=== PATIENT | female | born 1975 | race Caucasian/White ===

== ENCOUNTER 2016-10-10 10:56 | Day surgery (SDC) | payer OTHER ==
--- NOTE | 2016-10-06 03:37 | HP ---
PREOPERATIVE HISTORY AND PHYSICAL: DATE OF SURGERY/ADMISSION: 10/10/16 [facility] DATE OF OFFICE VISIT/ENCOUNTER: 10/02/16 ATTENDING SURGEON: Lamar Huff MD (DICTATED BY JAKE SAEZ) PROCEDURE: Left small finger mallet finger repair. CHIEF COMPLAINT: Mallet finger left small finger. HISTORY OF PRESENT ILLNESS: This is a 41-year-old female who sustained injury to her left pinky finger on 08/30/16 when she got bucked off of a horse. She had pain at the DIP joint and a flexion deformity at the joint. Initial x-ray showed a small fracture at the base of the distal phalanx, bony mallet finger. Despite appropriate treatment and diligence of the patient with wearing a stack splint on the finger, x-rays on 10/02/16 showed no subluxation of the joint, but also no healing callus after review of x-rays and the patient evaluation by Dr. Huff, it is recommended that the patient undergo a left small finger mallet finger repair. The patient has consented to proceed. PAST MEDICAL HISTORY: Allergic rhinitis. PAST SURGICAL HISTORY: D and C. CURRENT MEDICATIONS: 1. Fluticasone 50 mcg/ACT 1 puff daily. 2. Multivitamin daily. 3. Previfem 0.25-35 mg-mcg 1 daily. 4. Probiotic acidophilus daily. 5. Triamcinolone acetonide 0.025% apply to affected area p.r.n. ALLERGIES: PENICILLIN causes hives. FAMILY MEDICAL HISTORY: Noncontributory. 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 She denies tobacco use and recreational drug use. She does admit to alcohol use on occasion. REVIEW OF SYSTEMS: General: Negative for fevers, chills or night sweats. No known anesthesia problems. HEENT: Negative for headache, lightheadedness or syncopal episodes. Integumentary: Negative for abrasions, lesions or open wounds. Cardiothoracic: Negative for hypertension, chest pain, palpitations or edema. Pulmonary: Negative for shortness of breath with exertion, chronic cough , COPD. GI: Negative for nausea, vomiting, diarrhea or constipation or GERD. : Negative for nocturia, urinary frequency, urgency, history of UTIs or kidney problems. Musculoskeletal: Positive for current complaints, otherwise negative. Neurological: Negative for paresthesias, numbness, history of seizure , stroke or epilepsy. Endocrine: Negative for diabetes or thyroid issues. Hematologic: Negative for easy bruising, anemia, excessive bleeding or history of DVTs. Infectious Disease: Negative for history of MRSA, hepatitis C or HIV. PHYSICAL EXAMINATION GENERAL: A well-developed, well-nourished 41-year-old female, in no acute distress. VITAL SIGNS: Height 5 feet 7 inches, weight 140 pounds, pulse rate 68, blood pressure 134/65. HEENT: Normocephalic, atraumatic. Pupils are equal, round and reactive to light and accommodation. Extraocular movements are intact. Throat is clear. NECK: Supple. No palpable lymph nodes. PULMONARY: Lungs are clear to auscultation bilaterally. No wheezes, rales or rhonchi. CARDIOVASCULAR: Regular rate and rhythm. S1, S2. No murmurs, rubs or gallops. No edema. ABDOMEN: Positive bowel sounds. Soft, nontender. NEUROLOGIC: Alert and oriented x3. Cranial nerves II through XII are intact. Sensation is intact to light touch. PERIPHERAL VASCULAR: 2+ radial and ulnar pulses. Negative Giuseppe test. MUSCULOSKELETAL: On exam of the left small finger, there is a slight flexion deformity at the DIP joint. The patient is unable to actively extend the DIP joint. Passively full extension may be obtained, but the patient is not able to hold the finger in that position. Neurovascular function is intact. SKIN: Intact. IMAGING STUDIES: X-rays show no subluxation of the main fragment of the distal phalanx, but no healing. IMPRESSION: Left pinky finger bony mallet finger. PLAN: The patient is scheduled to undergo a left small finger mallet finger repair with Dr. Huff on 10/10/16. She will return to the office in 10 to 14 days postop for followup and suture removal. A prescription for [place] was e- scribed to the patient's pharmacy for postoperative pain management. JAKE SAEZ [id number]/[facility] #: [id number] MTDJose
[~2016-10-10 10:56] MED LIST: Buffered Lidocaine 0.9% SYRIN* 5 ML/SYR SYRINGE INTRADERM ONE; celeCOXIB CAP* 200 MG PO ONE
[2016-10-10] MEDS ORDERED: celeCOXIB CAP* 100 MG ONE (11:14)
[2016-10-10] MEDS ORDERED: Clindamycin 900 MG IVPREMIX(* 900 MG/50 ML SDV IV ONE (11:14)
[2016-10-10] MEDS ORDERED: Buffered Lidocaine 0.9% SYRIN* 5 ML/SYR SYRINGE ONE (11:15)
[2016-10-10] MEDS ORDERED: Lidocaine 1% INJ* 10 MG/ML 30 ML SDV ONE (12:35)
[2016-10-10] MEDS ORDERED: fentaNYL* 50 MCG/ML 2 ML VIAL (100 MCG VIAL) ONE (12:48)
[2016-10-10] MEDS ORDERED: Midazolam* 1 MG/ML 2 ML VIAL (2 MG) ONE (12:49)
[2016-10-10] MEDS ORDERED: HYDROcodone/ACETAMIN 5-325 MG* 1 TAB ONE (13:27)
[2016-10-10 13:55] VITALS: BP 103/73
--- NOTE | 2016-10-10 14:59 | RAD ---
INDICATION: Status post left small finger mallet repair, M 20.012 COMPARISONS: October 02, 2016 TECHNIQUE: Fluoroscopy was provided for a surgical procedure. Total fluoroscopy time is: 1 minute, 48 seconds FINDINGS: Spot images demonstrate external fixation of the fifth digit IMPRESSION: FLUOROSCOPY WAS PROVIDED FOR A SURGICAL PROCEDURE CPT II Codes: 6045F
--- NOTE | 2016-10-10 23:45 | OP ---
CC: Dr. Lamar Huff OPERATIVE NOTE: DATE OF OPERATION: 10/10/16 DATE OF : 71 SURGEON: Lamar Huff MD [employer] POLICE: JAKE Harris ANESTHESIA: [employer]. PRE-OP DIAGNOSIS: Displaced bony mallet finger of the left small finger. POST-OP DIAGNOSIS: Displaced bony mallet finger of the left small finger. OPERATIVE PROCEDURE: Mallet finger repair, left small finger. ESTIMATED BLOOD LOSS: Zero. TOURNIQUET TIME: Tourniquet was not used during the procedure. DESCRIPTION OF PROCEDURE: The patient was brought to the operating room, was given a sedation anest hetic and a digital block with 10 cc of 1% plain lidocaine. The skin of her left hand and forearm w as prepped and draped in the usual sterile fashion. The tourniquet was not used during the procedur e. The finger was then manipulated and with flexion, we were able to reduce the dorsal fragment and an extension blocking K-wire was placed just proximal to the dorsal fragment and into the middle ph alanx from dorsal to volar and then with extension of the DIP joint, the remainder of the distal pha lanx reduced and we drove a single 0.035 inch K-wire through the distal aspect of the bone through t he tip of the finger and then across the DIP joint into the central aspect of the middle phalanx. T he position of the fracture fragments was checked on the C-arm in the AP and lateral views an d the joint was well reduced. The pins were bent and cut, dressed with Xeroform, 4x4 Webril, and an AlumaFoam splint. The patient tolerated the procedure and was brought to the recovery in good cond ition. [id number]/[facility] #: [id number]
== END 2016-10-10 13:50 | disposition home or self-care (01) ==
LOC: OREAST 10:56
PROVIDERS: ATTEND Orthopaedic Surgery
PROC: 0XQ Anatomical Regions, Upper Extremities, Repair (ICD-10-PCS; principal; 2016-10-10 12:15)
DX: M20.012 Mallet finger of left finger(s) (principal)
CPT/HCPCS: 76000; A9270-GY; C1776; J2001; J2250; J3010

== ENCOUNTER 2016-11-08 14:59 | Emergency (ER) | payer OTHER ==
[2016-11-08 15:04] VITALS: BP 97/66
--- NOTE | 2016-11-08 15:14 | UC ---
Hip/Pelvis Pain - HPI Summary HPI Summary: 41 YEAR OLD FEMALE PRESENTS WITH COMPLAINS OF LEFT HIP PAIN AFTER BEING TRAMPLEd BY A HORSE. I WILL SEND HER TO THE ER FOR A LEFT HIP FX. SPOKE TO LEXUS. - History Of Current Complaint Chief Complaint: UCLowerExtremity Stated Complaint: HIP INJURY Time Seen by Provider: 11/08/16 15:06 Hx Last Menstrual Period: 1 WEEK AGO - Allergies/Home Medications Allergies/Adverse Reactions: Allergies Allergy/AdvReac Type Severity Reaction Status Date / Time Penicillins Allergy Intermediate Hives Verified 11/08/16 15:04 PMH/Surg Hx/FS Hx/Imm Hx - Surgical History Surgical History: Yes Surgery Procedure, Year, and Place: D&C 2001, LEFT 5TH FINGER PINNED 10/2016 - Family History Known Family History: Positive: Hypertension - Social History Alcohol Use: Occasionally Alcohol Amount: 2-3 drinks wine or beer Substance Use Type: None Smoking Status (MU): Never Smoked Tobacco Review of Systems Constitutional: Negative Skin: Negative Eyes: Negative ENT: Negative Respiratory: Negative Cardiovascular: Negative Gastrointestinal: Negative Genitourinary: Negative Motor: Negative Neurovascular: Negative Musculoskeletal: Negative, Arthralgia, Other: - LEFT HIP PAIN Neurological: Negative Psychological: Negative All Other Systems Reviewed And Are Negative: Yes Physical Exam Triage Information Reviewed: Yes Vital Signs: Initial Vital Signs Temp 37.6 C 11/08/16 15:01 Pulse 87 11/08/16 15:01 Resp 16 11/08/16 15:01 BP 97/66 11/08/16 15:01 Pulse Ox 100 11/08/16 15:01 Hip Injury Course/Dx - Differential Dx/Diagnosis Provider Diagnoses: LEFT HIP FX Discharge - Discharge Plan Condition: Stable Disposition: AGAINST MEDICAL ADVICE Patient Education Materials: Hip Pain (ED) Referrals: No Primary Care Phys,NOPCP [Primary Care Provider] -
--- NOTE | 2016-11-08 16:07 | RAD ---
HISTORY: Trauma, left groin pain COMPARISONS: None VIEWS: 3, Frontal view of the pelvis with frontal and frog-leg views of the left hip FINDINGS: BONE DENSITY: Normal. BONES: There are nondisplaced fractures of left superior and inferior pubic rami JOINTS: There is no arthropathy. ALIGNMENT: There is no dislocation. SOFT TISSUES: Unremarkable. OTHER FINDINGS: None. IMPRESSION: NONDISPLACED FRACTURES OF LEFT SUPERIOR AND INFERIOR PUBIC RAMI
== END 2016-11-08 16:20 | disposition left against medical advice (07) ==
LOC: UCEAST 14:59
DX: S72.002A Fracture of unspecified part of neck of left femur, initial encounter for closed fracture (principal); W55.19XA Other contact with horse, initial encounter; Y92.9 Unspecified place or not applicable
CPT/HCPCS: 99212; G0463

== ENCOUNTER 2016-11-08 17:08 | Inpatient (IN) | payer OTHER ==
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
[2016-11-08] MEDS ORDERED: HYDROcodone/ACETAMIN 5-325 MG* 1 TAB PO ONE (18:19)
--- NOTE | 2016-11-08 19:16 | RAD ---
HISTORY: Trauma, pelvic fracture, abdominal pain COMPARISONS: Left hip film dated November 08, 2016 TECHNIQUE: Multiple contiguous axial CT scans were obtained of the chest, abdomen, and pelvis, without intravenous contrast enhancement. Coronal and sagittal multiplanar reformations are submitted for review.. Oral contrast was not administered. FINDINGS: The study is limited by the lack of intravenous contrast. This limits evaluation of the solid organs and vasculature. This also precludes evaluation of active arterial extravasation CHEST NECK AND THYROID: The lower neck and thyroid are unremarkable. CHEST WALL: There is no lower cervical, axillary, or supraclavicular lymphadenopathy by size criteria. HEART AND PERICARDIUM: The heart is unremarkable. AORTA AND PULMONARY VASCULATURE: The aorta and pulmonary vasculature are normal. MEDIASTINUM: There is no mediastinal lymphadenopathy by size criteria. ANGELO: There is no hilar lymphadenopathy by size criteria. AIRWAY AND ESOPHAGUS: The airway is unremarkable, without endobronchial filling defect. The esophagus is grossly normal. LUNG PARENCHYMA: The lungs are clear. PLEURA: No pleural abnormalities are noted. BONES AND SOFT TISSUES: No bone or soft tissue abnormalities are noted. ABDOMEN/PELVIS: LIVER: The liver is normal in shape, size, contour, and attenuation. BILE DUCTS: There is no intrahepatic or extrahepatic biliary dilatation. GALLBLADDER: The gallbladder is normal, without pericholecystic inflammatory change. PANCREAS: The pancreas is normal, without mass or ductal dilatation. SPLEEN: Normal in size and appearance. UPPER GI TRACT: Evaluation of the gastrointestinal tract is limited by incomplete gastric distention. The upper GI tract is unremarkable. SMALL BOWEL \T\ MESENTERY: The small bowel is normal in contour, course, and caliber. There is no obstruction or dilatation. COLON: The colon is normal in contour, course, caliber. There is no pericolonic inflammatory change. ADRENALS: Normal bilaterally. KIDNEYS: There is a punctate nonobstructive right renal calyceal stone. There is no hydronephrosis. BLADDER: The bladder is smooth in contour. PELVIC ORGANS: The uterus and adnexa are grossly normal for technique. AORTA: The aorta is normal. IVC: Unremarkable LYMPH NODES: There is no lymphadenopathy by size criteria. ABDOMINAL WALL: There is no evidence for abdominal wall hernia. BONES: Again noted are nondisplaced fractures of the left superior and inferior pubic rami. There is also a nondisplaced fracture of the right inferior pubic ramus OTHER: None IMPRESSION: 1. AGAIN NOTED ARE NONDISPLACED FRACTURES OF THE LEFT SUPERIOR AND INFERIOR PUBIC RAMI. 2. THERE IS A NONDISPLACED FRACTURE OF THE RIGHT INFERIOR PUBIC RAMUS. 3. PUNCTATE NONOBSTRUCTING RIGHT RENAL CALYCEAL STONE. 4. NO ACUTE CT PATHOLOGY OF THE CHEST.
[2016-11-08] MEDS ORDERED: Morphine INJ* 2 MG/ML 1 ML SYRINGE IV ONE (19:56)
[2016-11-08] MEDS ORDERED: HYDROmorphone* 1 MG/ML 1 ML SYR IV PRN (20:05)
[2016-11-08] MEDS ORDERED: oxyCODONE TAB* 5 MG TAB PO PRN (20:05)
[2016-11-08] MEDS ORDERED: Melatonin (NF) 3 MG TAB PO PRN (20:05)
[2016-11-08] MEDS ORDERED: Ondansetron INJ* 2 MG/ML VIAL IV PRN (20:05)
[2016-11-08] MEDS ORDERED: NS 0.9% 1000 ML* 1,000 ML IV SCH (20:15)
[2016-11-08 21:32] LABS: Hematocrit 38 % (35-47); Hemoglobin 13.3 g/dl (12.0-16.0); Mean Corpuscular HGB Conc 35 g/dl (31-36); Mean Corpuscular Hemoglobin 34 pg (27-31); Mean Corpuscular Volume 96 fL (80-97); Mean Platelet Volume 7 um3 (7.4-10.4); Red Blood Count 3.96 10^6/ul (4.0-5.4); Red Cell Distribution Width 13 % (10.5-15); White Blood Count 9.4 10^3/ul (3.5-10.8)
[2016-11-08] MEDS: Docusate CAP* 100 MG PO SCH (22:47)
[2016-11-09] MEDS: Acetaminophen TAB* 325 MG PO PRN ×3 (02:23→20:55)
--- NOTE | 2016-11-09 03:22 | HP ---
MEDICINE HISTORY AND PHYSICAL: DATE OF ADMISSION: 11/08/16 PROVIDER: Suzette Alex NP. ATTENDING PHYSICIAN: Dr. Eddie Reece * (dictated by Suzette Alex NP). CONSULTING PHYSICIAN: Dr. Bert Gonzalez. PRIMARY CARE PROVIDER: None. CHIEF COMPLAINT: Fell off a horse. HISTORY OF PRESENT ILLNESS: Ms. Garcia is a 41-year-old female who came in by private car from Urgent Care today after sustaining a pelvic fracture. Earlier this afternoon, around 12 or 1 o'clock, the patient was riding a horse up a hill and the horse reared up unexpectedly and fell backwards with the patient still riding the horse. The horse did land on top of her. She denies hitting her head. She denies loss of consciousness. She denies any chest pain or difficulty breathing and reports pain primarily to the pelvic region. At Urgent Care, the patient did have a pelvic x-ray, which showed nondisplaced fracture to the left superior and inferior pubic rami. She was then referred to the ER, where we did do a CT of the abdomen and pelvis and chest, which showed again nondisplaced fractures of the left superior and inferior pubic rami and a nondisplaced fracture of the right inferior pubic ramus as well as a punctate, nonobstructing right renal calcium stone, and no acute CT pathology of the chest. Prior to this event, the patient denies any recent illness or complaint. She denies any chest pain, trouble breathing, recent fever, cold or flu symptoms, abdominal pain, nausea, vomiting, diarrhea or dysuria. She only endorses a recent repair of her left pinky finger, which she injured a few weeks back secondary to being bucked off of a horse. PAST MEDICAL HISTORY: Allergic rhinitis. PAST SURGICAL HISTORY: Mallet finger repair, left small finger. HOME MEDICATIONS: 1. Zaditor eye drops to both eyes daily as needed. 2. Multivitamin daily. 3. Probiotic daily. 4. Previfem 0.25/35 oral contraceptive. ALLERGIES: Include PENICILLINS and SULFA DRUGS. FAMILY HISTORY: Reviewed and noncontributory. SOCIAL HISTORY: The patient denies any current or former tobacco use. She reports occasional alcohol use, stating a couple of glasses of wine or other drink per week. She denies any history of drug use. 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 She is . Her , Calixto Garcia, is her healthcare proxy. REVIEW OF SYSTEMS: A 14-point review of systems was completed. All pertinent positives and negative are included in the HPI. All those not mentioned are negative. PHYSICAL EXAMINATION GENERAL: Ms. Garcia is a young female, who is lying on the ED stretcher, currently in no acute distress. VITAL SIGNS: Temperature 98.1, heart rate 87, respiratory rate 20, blood pressure 114/77, O2 saturation 100% on room air. HEENT: Head is atraumatic, normocephalic. Face is symmetrical. Pupils are equal, round, and reactive to light. Extraocular movements are intact. Sclerae are anicteric. Oral mucosa appears moist. NECK: Supple. No lymphadenopathy appreciated. The patient has full range of motion. RESPIRATORY: Lungs are clear to auscultation, with no accessory muscle use. Breath sounds heard in all lung kilgore. CARDIAC: S1, S2 heart sounds. Regular rate and rhythm. No murmurs, rubs or gallops. There is no peripheral edema. Distal pulses are 2+ bilaterally and symmetrical in both the upper and lower extremities. ABDOMEN: Soft, nontender, nondistended. Bowel sounds present times all 4 quadrants. No palpable masses or bruits noted. MUSCULOSKELETAL: There is tenderness with palpation along the pelvic area. I am unable to assess the patient's range of motion to the lower extremities as the patient has significant pain with movement. The patient moves upper extremities without difficulty. SKIN: Limited assessment, but appears grossly intact. NEUROLOGIC: The patient moves all extremities, though lower extremity movement is limited secondary to pain. No focal deficits noted. The patient is following commands. Sensation is intact to light touch and pinprick to the lower extremities. PSYCH: She is alert and oriented x3. Affect is appropriate. RADIOLOGIC TESTING: As per previously mentioned in the HPI. LABORATORY DATA: Pending. ASSESSMENT AND PLAN: Ms. Garcia is a 41-year-old female who presents today with a pelvic fracture secondary to trauma from a horse falling on the patient. She will be admitted to the medicine floor. Plan is as follows: 1. Pelvic fracture. Dr. Gonzalez was consulted in the ER by the ER provider and recommends nonoperative management at this time as the fracture is not significantly displaced and is only minimally displaced. The patient is ordered physical therapy, and we will work on pain management with the patient and have her be weightbearing as tolerated, encourage p.r.n. analgesia, ice packs to the affected areas, and we will also encourage incentive spirometry as the patient is at risk for atelectasis. 2. Seasonal allergies. The patient can continue her home medications as needed. 3. FEN. The patient is ordered a regular diet. 4. DVT prophylaxis. She is at highest risk. The patient is ordered subcu heparin. 5. Code status. She is a full code. TIME SPENT: Time spent on this admission was approximately 60 minutes, more than half the time was spent [id number] with the patient obtaining history and physical, performing physical examination, and reviewing the plan of care. Plan of care was also reviewed with my attending, Dr. Reece, who is in agreement. SUZETTE ALEX, KRIS [id number] #: [id number] YOJANA
[2016-11-09 05:42] LABS: Urine Bilirubin Negative (Negative); Urine Glucose Negative (Negative); Urine Nitrite Negative (Negative)
[2016-11-09] MEDS: Omeprazole CAP* 20 MG PO SCH (05:59)
[2016-11-09] MEDS: Heparin VIAL(*) 5000 UNITS/ML VIAL (FIVE THOUSAND) SUBCUT SCH ×2 (05:59→13:59)
[2016-11-09] MEDS: Prenatal Vitamin TAB PO SCH (08:41)
[2016-11-09] MEDS: Docusate CAP* 100 MG PO SCH (08:41)
[2016-11-09] MEDS: Lactobacillus Acidophilu (GG)* 1 CAP CAP PO SCH (08:41)
[2016-11-09] MEDS: KETOTIFEN FUMARATE BOTH EYES SCH (08:42)
[2016-11-09 08:55] LABS: Hematocrit 34 % (35-47); Hemoglobin 11.9 g/dl (12.0-16.0)
[2016-11-09] MEDS: traMADol TAB* 50 MG PO PRN ×3 (10:25→22:12)
[2016-11-09] MEDS ORDERED: HYDROmorphone* 1 MG/ML 1 ML SYR IV PRN (15:54)
--- NOTE | 2016-11-09 15:57 | PN ---
Subjective Date of Service: 11/09/16 Interval History: Pain somewhat better today. Nausea and headache with IV hydromorphone. No BM since admission. Objective Active Medications: Acetaminophen (Tylenol Tab*) 650 mg PO Q6H PRN PRN Reason: FEVER/PAIN Last Admin: 11/09/16 10:25 Dose: 650 mg Docusate Sodium (Colace Cap*) 200 mg PO BID [facility] Last Admin: 11/09/16 08:41 Dose: 200 mg Heparin Sodium (Porcine) (Heparin Vial(*)) 5,000 units SUBCUT Q8HR [facility] Last Admin: 11/09/16 13:59 Dose: 5,000 units Hydromorphone HCl (Dilaudid Iv*) 1 mg IV Q2H PRN PRN Reason: PAIN Last Admin: 11/09/16 05:36 Dose: 1 mg Sodium Chloride (Ns 0.9% 1000 Ml*) 1,000 mls @ 75 mls/hr IV PER RATE [facility] Last Admin: 11/09/16 14:38 Dose: 75 mls/hr Lactobacillus Rhamnosus (Culturelle*) 1 cap PO DAILY [facility] Last Admin: 11/09/16 08:41 Dose: 1 cap Melatonin (Melatonin (Nf)) 3 mg PO BEDTIME PRN; Protocol PRN Reason: Sleep Multivitamins ( Vitamin Tab*) 1 tab PO DAILY [facility] Last Admin: 11/09/16 08:41 Dose: 1 tab Ketotifen Fumarate ( Ophth) [Zaditor] 1 Drop 1 drop BOTH EYES DAILY [facility] Last Admin: 11/09/16 08:42 Dose: Not Given Omeprazole (Prilosec Cap*) 20 mg PO DAILY@0600 [facility] Last Admin: 11/09/16 05:59 Dose: Not Given Ondansetron HCl (Zofran Inj*) 4 mg IV Q6H PRN PRN Reason: NAUSEA Last Admin: 11/09/16 10:26 Dose: 4 mg Oxycodone HCl (Roxycodone Tab*) 5 mg PO Q4H PRN PRN Reason: PAIN Tramadol HCl (Ultram*) 50 mg PO Q6H PRN PRN Reason: PAIN Last Admin: 11/09/16 10:25 Dose: 50 mg Vital Signs 11/08/16 11/08/16 11/08/16 21:25 21:58 22:25 Temperature 98.5 F Pulse Rate 72 Respiratory 16 12 12 Rate Blood Pressure 104/70 (mmHg) O2 Sat by Pulse 100 Oximetry 11/08/16 11/09/16 11/09/16 23:56 05:16 05:36 Temperature 98.2 F 98.1 F Pulse Rate 77 65 Respiratory 16 16 14 Rate Blood Pressure 100/60 91/63 (mmHg) O2 Sat by Pulse 98 100 Oximetry 11/09/16 11/09/16 11/09/16 07:44 08:00 10:25 Temperature 98.3 F Pulse Rate 73 Respiratory 16 16 18 Rate Blood Pressure 108/63 (mmHg) O2 Sat by Pulse 99 Oximetry 11/09/16 11/09/16 11/09/16 12:25 12:28 15:37 Temperature 97.9 F 98.0 F Pulse Rate 69 68 Respiratory 16 16 16 Rate Blood Pressure 110/64 110/72 (mmHg) O2 Sat by Pulse 97 100 Oximetry Oxygen Devices in Use Now: None Appearance: Alert, in recline chair with both legs elevated. In good spirits. Looks comfortable at rest. Extremities: No Edema, No Clubbing, Cyanosis, - Skin: No Rash or Ulcers, No Nodules or Sclerosis, - Neurological: Alert and Oriented x 3, NL Sensation Result Diagrams: 11/09/16 08:25 Assess/Plan/Problems-Billing Assessment: - Patient Problems (1) Pelvic fracture Current Visit: Yes Status: Acute Code(s): S32.9XXA - FRACTURE OF UNSP PARTS OF LUMBOSACRAL SPINE AND PELVIS, INIT SNOMED Code(s): 82296169 Comment: Non-displaced fx. Discussed with Dr. Gonzalez. Consider discharge with oral analgesic. Pt will talk to her extended family about help at home. Start PEG 17 gm bid for constipation.
[2016-11-09] MEDS ORDERED: Enoxaparin(*) 40 MG/0.4 ML SYR SUBCUT SCH (16:00)
--- NOTE | 2016-11-09 16:41 | RAD ---
HISTORY: Trauma, pain after left fifth finger fracture COMPARISONS: October 23, 2016 VIEWS: 3, Frontal, lateral, and oblique views of the fifth digit of left hand FINDINGS: BONE DENSITY: Normal. BONES: Again noted is a fracture of the distal phalanx. The patient is status post percutaneous fixation. There is been no significant change from the previous examination. JOINTS: There is no arthropathy. ALIGNMENT: There is no dislocation. SOFT TISSUES: Unremarkable. OTHER FINDINGS: None. IMPRESSION: STATUS POST PERCUTANEOUS FIXATION OF A DISTAL FIFTH DIGIT FRACTURE. NO SIGNIFICANT CHANGE FROM THE PREVIOUS EXAMINATION.
[2016-11-09] MEDS: Polyethylene Glycol 3350* 17 GM PACKET PO SCH (20:55)
[2016-11-10] MEDS: traMADol TAB* 50 MG PO PRN ×2 (05:04→11:05)
[2016-11-10] MEDS: Omeprazole CAP* 20 MG PO SCH (05:04)
[2016-11-10 07:48] VITALS: BP 99/68
[2016-11-10] MEDS: Lactobacillus Acidophilu (GG)* 1 CAP CAP PO SCH (08:07)
[2016-11-10] MEDS: Prenatal Vitamin TAB PO SCH (08:07)
[2016-11-10] MEDS: KETOTIFEN FUMARATE BOTH EYES SCH (08:07)
[2016-11-10] MEDS: Polyethylene Glycol 3350* 17 GM PACKET PO SCH (08:07)
[2016-11-10] MEDS ORDERED: Docusate CAP* 100 MG PO SCH (09:00)
--- NOTE | 2016-11-11 12:13 | DS ---
CC: Navin Reese NP * DISCHARGE SUMMARY: DATE OF ADMISSION: 11/08/16 DATE OF DISCHARGE: 11/10/16 PRIMARY CARE PROVIDER: None. PRINCIPAL DIAGNOSES: 1. Nondisplaced fractures of the left superior and inferior pubic rami. 2. Nondisplaced fracture of the right inferior pubic ramus. SECONDARY DIAGNOSIS: Allergic rhinitis. DISCHARGE MEDICATIONS: 1. Zaditor 1 drop to both eyes daily. 2. Clemons-3 fatty acid 1 cap p.o. daily. 3. TriNessa 1 tab p.o. daily. 4. Multivitamin 1 tab p.o. daily. 5. Lactobacillus 1 cap p.o. daily. 6. Fluticasone 1 spray to both nostrils daily. 7. Tramadol 50 mg p.o. q. 6 hours p.r.n. pain. 8. MiraLAX 17 g p.o. b.i.d. p.r.n. constipation. 9. Colace 200 mg p.o. daily p.r.n. constipation. HOSPITAL COURSE: Ms. Garcia is a 41-year-old female who on the day of admission was riding her horse when it reared up unexpectedly and fell backwards with the patient still on it. The horse landed on top of her. She did not hit her head. She did not lose consciousness. She reported pain to the pelvic region and presented to urgent care for evaluation. At urgent care, the patient was found to have nondisplaced fractures of the left superior and inferior pubic rami and was referred to the emergency room for further evaluation. The patient then underwent a CT scan of the chest, abdomen and pelvis, which revealed the nondisplaced fracture of the left superior and inferior pubic rami, nondisplaced fracture of the right inferior pubic ramus, punctate nonobstructing right renal calyceal stone and no acute CT pathology of the chest. The patient was admitted to the hospitalist service for pain control. Dr. Gonzalez was consulted through the ER and recommended nonoperative management. Over the course of the next two days, the patient was able to get to ambulating independently with a walker. Her pain has been well controlled on tramadol alone. At this point, the patient feels stable for discharge home. PHYSICAL EXAMINATION: On the day of admission, the patient is awake, alert, and oriented, sitting in recliner, in no acute distress. Her vital signs revealed normal blood pressure, heart rate, and respiratory rate. She was afebrile. The patient's cardiac exam revealed a normal S1, S2. Regular rate and rhythm without any murmurs. Her lungs were clear and her abdomen is soft and nontender. The patient again is ready for discharge home. FOLLOWUP CONCERNS: The patient is being discharged home today, 11/10/16. ACTIVITY LEVEL: As tolerated. DIET: Regular. CONDITION ON DISCHARGE: Stable. The patient should follow up with Navin Reese NP, on 11/14/16 at 12:50 p.m. [id number]/[facility] #: [id number] [place]OJA[place]
== END 2016-11-10 13:15 | disposition home or self-care (01) | DRG 536 ==
LOC: ED 17:08 → MED 20:02
PROVIDERS: ADMIT Hospitalist; ATTEND Hospitalist
DX: S32.591A Other specified fracture of right pubis, initial encounter for closed fracture (principal); N20.0 Calculus of kidney; S32.512A Fracture of superior rim of left pubis, initial encounter for closed fracture; J30.9 Allergic rhinitis, unspecified; V80.010A Animal-rider injured by fall from or being thrown from horse in noncollision accident, initial encounter; Y93.52 Activity, horseback riding; Y92.9 Unspecified place or not applicable; Z79.3 Long term (current) use of hormonal contraceptives; Z79.899 Other long term (current) drug therapy; Z88.0 Allergy status to penicillin; Z88.2 Allergy status to sulfonamides
CPT/HCPCS: 36415; 71250; 73140; 74176; 81003; 85014; 85018; 85027; 99212; A9270-GY; G0463; J1170; J1644; J2270; J2405